=== PATIENT | male | born 1955 | race Hispanic/Latino ===

== ENCOUNTER → 2017-07-22 | Day surgery (SDC) | payer OTHER ==
[~2017-07-22] MED LIST: CEFAZOLIN SOD 1 GM VIAL ONE; DEXAMETHASONE SOD PHOS INJ 4 MG/ML VIAL ONE; FENTANYL CITRATE/PF 100MCG/2 ML INJ ONE; IOPAMIDOL 610MG/1ML 300 MG/ML VIAL IV ONE; LIDOCAINE HCL 2% LOCAL INJ 5 ML SDV VIAL INJ ONE; MIDAZOLAM HCL 2 MG/2 ML VIAL ONE; ONDANSETRON HCL INJ 2 MG/ML VIAL ONE; PROPOFOL IV EMULSION 10 MG/ML 20 ML VIAL ONE; SEVOFLURANE INHAL SOLN 250 ML PEN BTL ONE
--- NOTE | 2017-07-22 14:32 | Operative Report ---
DATE OF PROCEDURE: July 22, 2017 SERVICE: Urology. PREOPERATIVE DIAGNOSIS: Left nephrolithiasis, large stone 1.5 cm. POSTOPERATIVE DIAGNOSIS: Left nephrolithiasis, large stone 1.5 cm. OPERATION PERFORMED 1. Extracorporeal shock-wave lithotripsy of kidney stone. 2. Cystoscopy, left retrograde pyelogram, and placement of double-J stent, 6 Irish, 24 cm long to the left side. BLUEPRINTING AND PHOTOCOPY SUPERVISOR: None. ANESTHESIA: General. CLINICAL INDICATION NOTE: This is a 62-year-old patient that has a large stone 1.5 cm in the left kidney. Patient was brought for lithotripsy and placement of a double-J stent to prevent any blockage of the ureter by the fragments of the stone. Procedure was discussed with the patient with the help of a amusement equipment operator, and he accepts the procedure and understands the potential benefits and complications. DESCRIPTION OF PROCEDURE AND FINDINGS: After the proper level of anesthesia was achieved, the patient was placed in the supine position. The stone was brought to focus of treatment and treated with 2500 shocks. The stone disintegrated quite early. The Hounsfield units of the stone is about 660. Following this, the patient was placed in lithotomy position, prepped and draped in sterile fashion. Cystoscopy was then done. Hematuria was present as expected after the ESWL. An open-ended catheter was inserted to the left side. Retrograde pyelogram demonstrated a stone in the lower half of the kidney. The ureter was unremarkable. Guidewire was kept in place, and a 6-Irish, 24-cm long, double-J stent was properly positioned on the left side. The bladder was then irrigated. The scope was removed. Patient tolerated the procedure well and was transferred in satisfactory condition to the recovery room. He will be followed as outpatient for further treatment. Job#: [id number]
== END | disposition home or self-care (01) ==
LOC: OR 11:42
PROVIDERS: ATTEND Urology
DX: N20.0 Calculus of kidney (principal); R00.1 Bradycardia, unspecified; I44.4 Left anterior fascicular block; F17.210 Nicotine dependence, cigarettes, uncomplicated
CPT/HCPCS: 50590; 52332; 93005; C2617; J0690; J1100; J2001; J2250; J2405; Q9967

== ENCOUNTER → 2017-09-07 | Outpatient (CLI) | payer OTHER ==
--- NOTE | 2017-09-07 11:44 | Diagnostic Imaging Report ---
PROCEDURE:X-RAY ABDOMEN - KUB COMPARISON:None. INDICATIONS:CALCULUS OF KIDNEY FINDINGS: There is a non-obstructed bowel-gas pattern. No air-fluid levels or pneumoperitoneum. Moderate amount of retained feces is present in the colon and rectum. Left ureteral stent is present. There are no calcifications projected over the renal shadows, expected course of the ureters or bladder. Degenerative changes of the lumbar spine. There are no acute osseous abnormalities. The lung bases are clear. CONCLUSION: Left ureteral stent. Dictated by: Roverto Franklin M.D. on 09/07/2017 at 11:45 Electronically approved by: Roverto Franklin M.D. on 09/07/2017 at 11:45
== END ==
LOC: RAD 10:27
PROVIDERS: ATTEND Urology
DX: N20.0 Calculus of kidney (principal)
CPT/HCPCS: 74018

== ENCOUNTER → 2018-04-28 | Outpatient (CLI) | payer OTHER ==
--- NOTE | 2018-04-28 08:30 | Diagnostic Imaging Report ---
PROCEDURE:X-RAY ABDOMEN - KUB COMPARISON:KUB 01/30/18 INDICATIONS:URETERAL CALCULUS FINDINGS: Left internal ureteral stent is noted. The proximal loop projects over the expected location of the left renal pelvis and the distal loop projects over the midline urinary bladder. Bladder calculi project over the distal loop. Bowel gas partially obscures visualization of the kidneys. A 3 mm calcification projects over the left lower pole kidney, likely representing stone. No urinary calcifications project over the right renal shadow or expected location of the ureters. Coarse prostatic calcifications are again noted. Non-obstructive bowel gas pattern. Degenerative changes of the spine without evidence of acute bony findings. CONCLUSION: Left internal ureteral stent as noted above. Bladder calculi project over the distal locking loop. Dictated by: LETY CANTU M.D. on 04/28/2018 at 8:40 Electronically approved by: LETY CANTU M.D. on 04/28/2018 at 8:40
== END ==
LOC: RAD 07:38
PROVIDERS: ATTEND Urology
DX: N20.1 Calculus of ureter (principal)
CPT/HCPCS: 74018

== ENCOUNTER → 2018-06-08 | Day surgery (SDC) | payer OTHER ==
[~2018-06-08] MED LIST changes: +AZO STANDARD95 MG PO; -CEFAZOLIN SOD 1 GM VIAL ONE; +CEFAZOLIN SOD 1 GM/D5W 50ML 50 ML IV ONE; +EPHEDRINE SULFATE INJ 50 MG/10 ML SYR ONE
--- OUTSIDE RECORDS SUMMARY | 2018-06-08 09:20 | XMS REPORT ---
Author Author [facility] Address Unknown Phone Unavailable Care Team Providers Care Ship'S Officer Name Role Phone QUYNH LI Unavailable Unavailable Payers Payer Name Policy Type Policy Number Effective Date Expiration Date Problems This patient has no known problems. Allergies, Adverse Reactions, Alerts Allergy Name Allergy Type Status Severity Reaction(s) Onset Date Inactive Date Treating Clinician Comments No Known Allergies DA Active U 2018-02-11 00:00:00 No Known Allergies DA Active U 2016-01-07 00:00:00 Medications This patient has no known medications. Encounters Start Date/Time End Date/Time Encounter Type Admission Type Attending Clinicians Care Facility Care Department Encounter ID 2018-02-09 00:00:00 2018-02-09 00:00:00 Outpatient [facility] [id number] Results Test Description Test Time Test Comments Text Results Atomic Results Result Comments ABDOMEN-1VIEW (KUB) 2018-04-28 08:40:00 [place] [id number] Patient Name: DINO REESE MR #: [id number] : 1955 Age/Sex: 62/M Req #: [id number] Adm Physician: Ordered by: QUYNH LI MD Report #: [id number] Location: [facility] Room/Bed: Procedure: [id number] DX/ABDOMEN-1VIEW (KUB) Exam Date: 04/28/18 Exam Time: 0750 REPORT STATUS: Signed PROCEDURE: X-RAY ABDOMEN - KUB COMPARISON: K UB 01/30/18 INDICATIONS: URETERAL CALCULUS FINDINGS: Left internal ureteral stent is noted. The proximal loop projects over the expected location of the left renal pelvis and the distal loop projects over the midline urinary bladder. Bladder calculi project over the distal loop. Bowel gas partially obscures visualization of the kidneys. A 3 mm calcification projects over the left lower pole kidney, likely representing stone. No urinary calcifications project over the right renal shadow or expected location of the ureters. Coarse prostatic calcifications are again noted. Non-obstructive bowel gas pattern. Degenerative changes of the spine without evidence of acute bony findings. CONCLUSION: Left internal ureteral stent as noted above. Bladder calculi project over the distal locking loop. Dictated by: LETY CANTU M.D. on 04/28/2018 at 8:40 Electronically approved by: LETY CANTU M.D. on 04/28/2018 at 8:40 Dictated By: LETY CANTU MD 08 Transcribed By: JAYLAN on 04/28/18 0840 COPY TO: QUYNH LI MD ABDOMEN-1VIEW (KUB) 2018-01-30 11:51:00 [place] [id number] Patient Name: DION REESE MR #: [id number] : 1955 Age/Sex: 62/M Req #: [id number] Adm Physician: Ordered by: QUYNH LI MD Report #: [id number] Location: [facility] Room/Bed: Procedure: [id number] DX/ABDOMEN-1VIEW (KUB) Exam Date: 01/30/18 Exam Time: 1120 REPORT STATUS: Signed Exam: Abdominal film Clinical History: Kidney stones Comparison: None. DISCUSSION: Left internal ureteral stent is noted. The proximal locking loop projects over the expected region of the left renal pelvis. The distal locking loop projects over the urinary bladder to the right of midline. The distal locking loop of the stent is entombed by calculi within the bladder. Coarse prostatic calcifications are also noted. No suspicious calcifications project over the right renal shadow or right ureteral course. Bowel gas pattern is nonobstructive. Regional skeletal structures are intact with multilevel degenerative disc changes of the lumbar spine. IMPRESSION: Left internal ureteral stent positioned as described. The distal locking loop of the stent is entombed by calculi within the urinary bladder. Signed by: Dr. Raymundo Garcia M.D. on 01/30/2018 11:53 AM Dictated By: RAYMUNDO GARCIA MD 1153 Transcribed By: GEMA on 01/30/18 1153 COPY TO: QUYNH LI MD ABDOMEN-1VIEW (KUB) [place] [address] Patient Name: DINO REESE MR #: [id number] : 1955 Age/Sex: 62/M Req #: [id number] Adm Physician: Ordered by: QUYNH LI MD Report #: [id number] Location: [facility] Room/Bed: Procedure: [id number] DX/ABDOMEN-1VIEW (KUB) Exam Date: 09/07/17 Exam Time: 1045 REPORT STATUS: Signed PROCEDURE: X-RAY ABDOMEN - KUB COMPARISON: None. INDICATIONS: CALCULUS OF KIDNEY FINDINGS: There is a non-obstructed bowel-gas pattern. No air-fluid levels or pneumoperitoneum. Moderate amount of retained feces is present in the colon and rectum. Left ureteral stent is present. There are no calcifications projected over the renal shadows, expected course of the ureters or bladder. Degenerative changes of the lumbar spine. There are no acute osseous abnormalities. The lung bases are clear. CONCLUSION: Left ureteral stent. Dictated by: Tao Herrera M.D. on 09/07/2017 at 11:45 Electronically approved by: Tao Herrera M.D. on 09/07/2017 at 11:45 Dictated By: TAO HERRERA MD 1145 Transcribed By: JAYLAN on 09/07/17 1145 COPY TO: QUYNH LI MD
[2018-06-08 12:35] VITALS: BP 113/75
--- NOTE | 2018-06-08 21:02 | Operative Report ---
DATE OF PROCEDURE: June 08, 2018 SERVICE: Urology. PREOPERATIVE DIAGNOSES: 1. Left nephrolithiasis. 2. Stents on the left side. 3. Dilation of lower third of the left ureter. 4. Microhematuria. POSTOPERATIVE DIAGNOSES: 1. Left nephrolithiasis. 2. Stents on the left side. 3. Dilation of lower third of the left ureter. 4. Microhematuria. OPERATIONS PERFORMED: 1. Cystoscopy, right retrograde pyelograms under fluoroscopic control, not related to the contralateral problem. 2. Removal of double-J stent from the left side. 3. Left retrograde pyelograms under fluoroscopic control. 4. Left ureteroscopy with holmium laser fragmentation of stones. 5. Placement of double-J stent 6-Irish 24 cm long to the left side. 6. Interpretation of x-ray, radiologist not present. 7. Supervision of fluoroscopy, radiologist not present. SALES REPRESENTATIVE [employer]OM[employer]: None. ANESTHESIA: General. CLINICAL INDICATION NOTE: This is a 63-year-old patient who was brought for further treatment of nephrolithiasis. He does have a stent in place and history of stone on the left side. Procedure was discussed with the patient. Potential benefits and complication discussed, explained and accepted. DESCRIPTION OF PROCEDURE AND FINDINGS: After proper level of anesthesia was achieved, the patient was placed in lithotomy position, prepped and draped in usual sterile fashion. Urethra inspected was unremarkable, but the outlet was minimally obstructed by small prostate. Bladder was trabeculated. Small present. Double-J stent was protruding to left ureteral orifice. Open-end catheter was inserted to the right side, and retrograde pyelograms were done under fluoroscopic control. The system appeared to be unremarkable, the drainage was prompt, no blockage was noticed. Following this, the open-end catheter was inserted by the double-J stent on the left side. The left side stent was removed. Retrograde pyelograms demonstrating some segmental dilation of the lower third of the ureters like a fusiform area. The upper collecting system is minimally dilated. After this, a wire was advanced to the kidney and ureteroscopy was done. No intrinsic lesions were identified along the ureter. Small stones in the pelvis fragmented with 200 micron laser fiber. Following this, wire was kept in place and a double-J stent 6-Irish 24 cm long was properly positioned. The bladder was emptied. Patient was transferred in satisfactory condition to the recovery room. He will be followed as outpatient. Postop orders given. Job#: [id number]
== END | disposition home or self-care (01) ==
LOC: OR 09:16
PROVIDERS: ATTEND Urology
DX: N20.0 Calculus of kidney (principal); Z46.6 Encounter for fitting and adjustment of urinary device; N32.89 Other specified disorders of bladder; F17.210 Nicotine dependence, cigarettes, uncomplicated; Z01.810 Encounter for preprocedural cardiovascular examination
CPT/HCPCS: 52356; 74420; 93005; C2617; J0690; J1100; J2001; J2250; J2405; J2704; Q9967

== ENCOUNTER → 2018-08-18 | Day surgery (SDC) | payer OTHER ==
[~2018-08-18] MED LIST changes: +BELLADONNA/OPIUM 60 MG SUPP PR ONE; -CEFAZOLIN SOD 1 GM/D5W 50ML 50 ML IV ONE; +CEFAZOLIN SOD 1 GM/NS 50ML 50 ML IV ONE; +LISINOPRIL10 MG PO; -ONDANSETRON HCL INJ 2 MG/ML VIAL ONE; +ONDANSETRON HCL INJ 2MG/ML 2ML 2 MG/ML VIAL ONE
[2018-08-18 16:00] VITALS: BP 154/93
--- NOTE | 2018-08-19 01:40 | Operative Report ---
DATE OF PROCEDURE: 08/18/2018 SURGEON: Nalini Dale MD SERVICE: Urology. PREOPERATIVE DIAGNOSES: 1. Left nephrolithiasis. 2. Left double-J stent. 3. Microhematuria. POSTOPERATIVE DIAGNOSES: 1. Left nephrolithiasis. 2. Left double-J stent. 3. Microhematuria. OPERATIONS PERFORMED: 1. Cystoscopy and right retrograde pyelogram under fluoroscopic control. This is done as a separate procedure, not related to the contralateral side, done for microhematuria. 2. Removal of double-J stent from the left side. 3. Left retrograde pyelogram under fluoroscopic control. 4. Left ureteroscopy with laser fragmentation of pelvic stone. 5. Interpretation of x-ray, radiologist not present. 6. Supervision of fluoroscopy, radiologist not present. RETENTION SPECIALIST: None. ANESTHESIA: General. CLINICAL INDICATION: This is a 63-year-old patient, who is treated in the past for nephrolithiasis, was brought for further assessment and possible treatment to see if any of these stones are formed. Procedure was discussed with the patient. Potential benefits and complication explained and accepted. DESCRIPTION OF PROCEDURE AND FINDINGS: After appropriate level of anesthesia was achieved, the patient was placed in lithotomy position, prepped and draped in the usual sterile fashion. The urethra was inspected and is unremarkable. The bladder outlet is minimally obstructed, a small prostate. The bladder mucosa is unremarkable. Open-ended catheter was inserted to the right side and retrograde pyelogram demonstrated a normal collecting system and prompt drainage. The double-J stent on the left side was removed with placement of open-ended catheter. Retrograde pyelogram demonstrating some minimal dilation of the upper collecting system and a question of whether there is minimal narrowing of the UPJ. A guidewire was kept in place and a flexible ureteroscopy was done. Small calculi were identified as well as some random plaques. A 200 micron laser fiber was inserted and stone was fragmented. Following this, pelvis was irrigated and scope was removed. Selected not to place a double-J stent. No other stones were identified. The patient tolerated the procedure well. B and O suppository was placed and he was transferred in satisfactory condition to recovery. Followup was given. Nalini Dale MD AL/MODL /[id number]
== END | disposition home or self-care (01) ==
LOC: OR 11:26
PROVIDERS: ATTEND Urology
DX: N20.0 Calculus of kidney (principal); Z46.6 Encounter for fitting and adjustment of urinary device; I10 Essential (primary) hypertension; F17.210 Nicotine dependence, cigarettes, uncomplicated; Z01.810 Encounter for preprocedural cardiovascular examination
CPT/HCPCS: 52353; 74420; 93005; C1758; J0690; J1100; J2001; J2250; J2405; J2704; Q9967